=== PATIENT | female | born 1960 | race African-American/Black ===

== ENCOUNTER 2022-10-08 10:33 | Emergency (ER) | payer OTHER ==
[2022-10-08 11:00] VITALS: RESP 18; BMI 23.8
[2022-10-08] MEDS ORDERED: KETOROLAC TROMETHAMINE 30 MG/1 ML VIAL IVPUSH ONE (12:01)
[2022-10-08] MEDS ORDERED: SODIUM CHLORIDE 1,000 ML IV ONE (12:01)
[2022-10-08] MEDS ORDERED: ONDANSETRON 4 MG/2 ML VIAL IVPB ONE (12:02)
[2022-10-08] MEDS ORDERED: KETOROLAC TROMETHAMINE 15 MG/ML VIAL ONE (12:05)
[2022-10-08 12:44] LABS: BASO % 0.2 % (0-2.0); EOS % 0.1 % (0-4.5); HEMATOCRIT 41.2 % (32.4-45.2); HEMOGLOBIN 13.7 GM/dL (10.7-15.3); LYMPH % 10.8 % (8-40); MCH 31.9 pg (25.7-33.7); MCHC 33.4 g/dl (32.0-36.0); MEAN CELL VOLUME 95.4 fl (80-96); MEAN PLT VOLUME 7.8 fl (7.5-11.1); MONO % 5.1 % (3.8-10.2); NEUT % 83.8 % (42.8-82.8); PLATELET COUNT 255 10^3/uL (134-434); RBC 4.32 M/mm3 (3.60-5.2); RDW 13.3 % (11.6-15.6)
[2022-10-08 13:11] LABS: CHLORIDE 104 mmol/L (98-107); SODIUM 135 mmol/L (136-145)
[2022-10-08 13:13] LABS: ALBUMIN 3.3 g/dl (3.4-5.0); BLOOD UREA NITROGEN 11.7 mg/dL (7-18); CALCIUM 8.9 mg/dL (8.5-10.1); CO2 26 mmol/L (21-32); GLUCOSE,RANDOM 121 mg/dL (74-106)
[2022-10-08 13:16] LABS: CREATININE 1.1 mg/dL (0.55-1.3)
[2022-10-08 13:18] LABS: BILIRUBIN,TOTAL 0.8 mg/dL (0.2-1); TOT PROT 7.7 g/dl (6.4-8.2)
[2022-10-08 13:19] LABS: ALK PHOS 82 U/L (45-117)
[2022-10-08 13:21] LABS: ANION GAP 5 MMOL/L (8-16); SGOT/AST 128 U/L (15-37); SGPT/ALT 35 U/L (13-61)
[2022-10-08 13:53] LABS: EPI CELLS 18 /uL (0-25.1); HYALINE CASTS 0 /uL (0-3.1); URINE APPEARANCE CLEAR; URINE BACTERIA 47 /uL (0-1359); URINE BILIRUBIN NEGATIVE (NEGATIVE); URINE COLOR YELLOW; URINE GLUCOSE (UA) NEGATIVE (NEGATIVE); URINE KETONE NEGATIVE (NEGATIVE); URINE LEUK ESTERASE TRACE (NEGATIVE); URINE NITRITE NEGATIVE (NEGATIVE); URINE PROTEIN TRACE (NEGATIVE); URINE RBC 522 /uL (0-23.9); URINE WBC 45 /uL (0-25.8)
[2022-10-08 14:09] LABS: CALCIUM 8.4 mg/dL (8.5-10.1)
[2022-10-08 14:10] LABS: BLOOD UREA NITROGEN 11.2 mg/dL (7-18)
[2022-10-08 15:54] VITALS: BP 125/60; PULSE 55; TEMP 98.3
== END 2022-10-08 16:46 | disposition home or self-care (01) ==
LOC: JER 10:33
PROC: 3E033GC Introduction of Other Therapeutic Substance into Peripheral Vein, Percutaneous Approach (ICD-10-PCS; principal; 2022-10-08)
DX: N20.0 Calculus of kidney (principal)
CPT/HCPCS: 36415; 74176-TC; 80048; 80053; 81003; 85025; 96361; 96374; 96375; 99285-25